=== PATIENT | female | born 1985 | race Caucasian/White ===

== ENCOUNTER 2017-06-16 18:56 | Emergency (ER) | payer OTHER ==
[2017-06-16] MEDS: MORPHINE 2 MG/ML 1ML SYRINGE (J2270) IV (19:30)
[2017-06-16] MEDS: ONDANSETRON 4MG/2ML VIAL (J2405) IV (19:30)
[2017-06-16] MEDS ORDERED: ONDANSETRON 4MG/2ML VIAL (J2405) As Ordered (19:33)
[2017-06-16] MEDS ORDERED: MORPHINE 2 MG/ML 1ML SYRINGE (J2270) As Ordered (19:34)
[2017-06-16 19:37] LABS: BASO # 0.1 10^3/uL (0.0-0.2); BASO % 0.4 % (0.0-1.0); EOS # 0.1 10^3/uL (0.0-0.50); EOS % 1.1 % (0.0-3.0); HEMOGLOBIN 12.8 g/dl (12.0-15.5); IMMATURE GRANULOCYTE % 0.6 % (0-3.0); MEAN CORPUSCULAR HEMOGLOBIN 31.6 pg (27.0-33.0); MEAN CORPUSCULAR HGB CONC 35.6 g/dl (32.0-36.5); MEAN CORPUSCULAR VOLUME 88.9 fl (80.0-96.0); MONO # 0.7 10^3/uL (0.0-0.8); MONO % 5.9 % (0.0-5.0); NEUTROPHILS # 8.3 10^3/uL (1.8-7.7); PLATELET COUNT, AUTOMATED 245 10^3/uL (150-450); RED BLOOD COUNT 4.05 10^6/uL (4.00-5.40); RED CELL DISTRIBUTION WIDTH 12.6 % (11.5-14.5); WHITE BLOOD COUNT 12.3 10^3/uL (4.0-10.0)
[2017-06-16] MEDS ORDERED: MORPHINE 4 MG/ML 1ML VIAL (J2270) As Ordered (19:46)
[2017-06-16] MEDS: MORPHINE 4 MG/ML 1ML VIAL (J2270) IV ×2 (19:48→20:09)
[2017-06-16] MEDS ORDERED: LIDOCAINE W/EPINEPHRINE 1% 20ML VIAL SC (20:30)
[2017-06-16 20:52] LABS: ALBUMIN 3.6 GM/DL (3.2-5.2); ALBUMIN/GLOBULIN RATIO 1.16 (1.00-1.93); ALKALINE PHOSPHATASE 53 U/L (45-117); ALT/SGPT 15 U/L (12-78); ANION GAP 8 MEQ/L (8-16); AST/SGOT 18 U/L (7-37); BILIRUBIN,DIRECT 0.1 MG/DL (0.0-0.2); BILIRUBIN,TOTAL 0.4 MG/DL (0.2-1.0); BLOOD UREA NITROGEN 7 MG/DL (7-18); CALCIUM LEVEL 8.7 MG/DL (8.5-10.1); CARBON DIOXIDE LEVEL 22 MEQ/L (21-32); CHLORIDE LEVEL 110 MEQ/L (98-107); CREATININE FOR GFR 0.78 MG/DL (0.55-1.30); GLOMERULAR FILTRATION RATE > 60.0 (>60); GLUCOSE, FASTING 94 MG/DL (70-100); HCG, SERUM QUANTITATIVE 85966 MIU/ML; LIPASE 112 U/L (73-393); SODIUM LEVEL 140 MEQ/L (136-145); TOTAL PROTEIN 6.7 GM/DL (6.4-8.2)
[2017-06-16] MEDS: OXYCODONE/APAP 5MG/325MG(BULK FOR ED) 1 TABLET PO (22:45)
== END 2017-06-16 22:59 | disposition home or self-care (01) ==
LOC: M ED 18:56
DX: O20.0 Threatened abortion (principal); Z3A.09 9 weeks gestation of pregnancy; O99.331 Smoking (tobacco) complicating pregnancy, first trimester; F17.210 Nicotine dependence, cigarettes, uncomplicated
CPT/HCPCS: J2270

== ENCOUNTER 2018-06-25 | Emergency (ER) | payer OTHER ==
[~2018-06-25] VITALS: Ht 152.4 cm; Wt 64.5 kg
[~2018-06-25] MED LIST: ACET-716 PO; CLIN300C PO; MORP10SO PO; NAPR500T2 PO; No Historical Meds; OXYC1TAB23 PO; PROM25TA12 PO; TYLE325T5 PO; ZOFR4TAB16 PO
[2018-06-25] MEDS ORDERED: ELIM5CRE2 TOP (02:38)
[2018-06-25 02:48] VITALS: BP 114/73
== END 2018-06-25 03:02 | disposition home or self-care (01) ==
LOC: M ED
DX: B86 Scabies (principal); F17.210 Nicotine dependence, cigarettes, uncomplicated

== ENCOUNTER → 2018-10-22 | Outpatient (CLI) | payer OTHER ==
[~2018-10-22] MED LIST changes: +ELIM5CRE2 TOP
--- NOTE | 2018-10-22 14:13 | REP ---
PA and lateral chest: Comparison is 05/27/2014. The lung rosales are clear. The cardiac size is normal. The gretta, mediastinum, and skeletal structures are unremarkable except for thoracic scoliosis convex right at the lower thoracic level, unchanged . Impression: Negative PA and lateral chest. There is no interval change Electronically Signed by Thai Alcala MD 10/22/2018 02:04 P
== END ==
LOC: M SMT 13:50
PROVIDERS: ATTEND Physician Assistant Medical
DX: R05 Cough (principal); R06.02 Shortness of breath

== ENCOUNTER 2018-12-19 20:09 | Emergency (ER) | payer OTHER ==
[~2018-12-19] VITALS: Ht 152.4 cm; Wt 96.4 kg
[2018-12-19 21:40] LABS: INFLUENZA A AMPLIFICATION NEGATIVE (NEGATIVE); INFLUENZA B AMPLIFICATION NEGATIVE (NEGATIVE)
[2018-12-19 22:31] LABS: BASO # 0.1 10^3/uL (0.0-0.2); BASO % 0.4 % (0.0-1.0); EOS # 0.1 10^3/uL (0.0-0.5); EOS % 0.7 % (0.0-3.0); HEMATOCRIT 39.6 % (36.0-47.0); HEMOGLOBIN 13.6 g/dl (12.0-15.5); LYMPH # 2.2 10^3/uL (1.5-5.0); MEAN CORPUSCULAR HEMOGLOBIN 31.9 pg (27.0-33.0); MEAN CORPUSCULAR HGB CONC 34.3 g/dl (32.0-36.5); MONO # 0.7 10^3/uL (0.0-0.8); MONO % 4.7 % (0.0-5.0); NEUTROPHILS # 10.7 10^3/uL (1.5-8.5); PLATELET COUNT, AUTOMATED 231 10^3/uL (150-450); RED BLOOD COUNT 4.26 10^6/uL (4.00-5.40); WHITE BLOOD COUNT 13.7 10^3/uL (4.0-10.0)
[2018-12-19 22:57] LABS: MONO REFLEX EBV COMP NEGATIVE (NEGATIVE)
[2018-12-19] MEDS ORDERED: PENI500T PO (23:13)
[2018-12-19] MEDS ORDERED: PENICILLIN V POTASSIUM 500 MG TAB PO ONE (23:15)
[2018-12-19 23:31] VITALS: BP 141/65
[2018-12-22 00:07] LABS: EBV VIRAL CAPSID AG IgG >600.0 U/mL (0.0-17.9); EBV VIRAL CAPSID AG IgM <36.0 U/mL (0.0-35.9)
== END 2018-12-19 23:32 | disposition home or self-care (01) ==
LOC: M ED 20:09
DX: J06.9 Acute upper respiratory infection, unspecified (principal); D72.829 Elevated white blood cell count, unspecified; F17.210 Nicotine dependence, cigarettes, uncomplicated

== ENCOUNTER 2018-12-20 15:47 | Emergency (ER) | payer OTHER ==
[~2018-12-20 15:47] MED LIST changes: +PENI500T PO
[2018-12-20 15:48] VITALS: BP 125/78
== END 2018-12-20 16:53 | disposition home or self-care (01) ==
LOC: M ED 15:47
DX: J03.90 Acute tonsillitis, unspecified (principal); F17.200 Nicotine dependence, unspecified, uncomplicated

== ENCOUNTER 2019-01-07 13:46 | Emergency (ER) | payer OTHER ==
[~2019-01-07] VITALS: Ht 152.4 cm; Wt 58.9 kg
[2019-01-07] MEDS ORDERED: ACYC800T PO (16:41)
[2019-01-07 16:46] VITALS: BP 149/92
== END 2019-01-07 16:47 | disposition home or self-care (01) ==
LOC: M ED 13:46
DX: B02.9 Zoster without complications (principal); F17.210 Nicotine dependence, cigarettes, uncomplicated

== ENCOUNTER 2019-11-19 16:46 | Emergency (ER) | payer OTHER, SELFPAY ==
[~2019-11-19] VITALS: Ht 165.1 cm; Wt 58.6 kg
[2019-11-19 16:46] VITALS: BP 131/89
[~2019-11-19 16:46] MED LIST changes: +ACYC800T PO
== END 2019-11-19 18:06 | disposition left against medical advice (07) ==
LOC: M ED 16:46
DX: Z53.21 Procedure and treatment not carried out due to patient leaving prior to being seen by health care provider (principal)

== ENCOUNTER 2020-03-29 12:48 | Emergency (ER) | payer OTHER, SELFPAY ==
[~2020-03-29] VITALS: Ht 165.1 cm; Wt 60.7 kg
[2020-03-29] MEDS ORDERED: dexameTHASONE 20MG/5ML VIAL (J1100 PER 1MG) IV ONE (13:15)
[2020-03-29] MEDS: COMBIVENT RESPIMAT 100-20MCG INHALER 4GM INH SCH ×3 (13:21→13:33)
--- NOTE | 2020-03-29 13:55 | REP ---
INDICATION: DYSPNEA/COUGH. COMPARISON: 10/22/2018 a two view exam TECHNIQUE: Portable FINDINGS: The technique utilized in obtaining the radiograph has magnified the cardiac silhouette and accentuated the interstitial markings. The superior mediastinal structures are midline. The cardiac silhouette is unremarkable in size, shape, and position. The diaphragmatic surfaces of the lungs are regular, and the costophrenic angles are clear. The pulmonary rosales are clear. The imaged osseous structures are intact. IMPRESSION: There is no acute cardiopulmonary disease. <Electronically signed by Marquis Izaguirre > 03/29/20 [id number]
[2020-03-29 14:07] LABS: VENOUS BASE EXCESS -1.7 (-2.0-2.0); VENOUS HCO3 20.7 MEQ/L (23.0-27.0); VENOUS PARTIAL PRESSURE CO2 28.9 mmHg (38.0-50.0); VENOUS PH 7.473 UNITS (7.330-7.430); VENOUS TOTAL CO2 21.6 MEQ/L (24.0-28.0)
[2020-03-29 14:13] LABS: BASO % 0.3 % (0.0-1.0); EOS % 0.4 % (0.0-3.0); HEMATOCRIT 39.2 % (36.0-47.0); HEMOGLOBIN 13.1 g/dl (12.0-15.5); LYMPH # 1.7 10^3/uL (1.5-5.0); LYMPH % 24.2 % (24.0-44.0); MEAN CORPUSCULAR HEMOGLOBIN 32.6 pg (27.0-33.0); MEAN CORPUSCULAR HGB CONC 33.4 g/dl (32.0-36.5); MEAN CORPUSCULAR VOLUME 97.5 fl (80.0-96.0); MONO # 0.4 10^3/uL (0.0-0.8); MONO % 6.2 % (0.0-5.0); NEUTROPHILS # 4.9 10^3/uL (1.5-8.5); NEUTROPHILS % 68.2 % (36.0-66.0); PLATELET COUNT, AUTOMATED 196 10^3/uL (150-450); RED BLOOD COUNT 4.02 10^6/uL (4.00-5.40); WHITE BLOOD COUNT 7.2 10^3/uL (4.0-10.0)
[2020-03-29 14:24] LABS: INR 0.91; PROTHROMBIN TIME 12.4 SECONDS (12.5-14.3)
[2020-03-29 14:25] LABS: PARTIAL THROMBOPLASTIN TIME 25.8 SECONDS (24.2-38.5)
[2020-03-29 14:27] LABS: D-DIMER QUANT 367.41 ng/ml (<500)
[2020-03-29] MEDS ORDERED: PRED20TA (14:39)
[2020-03-29] MEDS ORDERED: ALBU8.5H (14:39)
[2020-03-29 14:40] LABS: ERYTHROCYTE SEDIMENTATION RATE 3 mm/hr (0-20)
[2020-03-29 14:42] LABS: ALT/SGPT 32 U/L (12-78); BLOOD UREA NITROGEN 10 MG/DL (7-18); CALCIUM LEVEL 8.5 MG/DL (8.5-10.1); CARBON DIOXIDE LEVEL 23 MEQ/L (21-32); CHLORIDE LEVEL 111 MEQ/L (98-107); CREATININE FOR GFR 0.78 MG/DL (0.55-1.30); GLOMERULAR FILTRATION RATE > 60.0 (>60); GLUCOSE, FASTING 88 MG/DL (70-100); POTASSIUM SERUM 4.1 MEQ/L (3.5-5.1); SODIUM LEVEL 140 MEQ/L (136-145)
[2020-03-29 14:43] LABS: ALBUMIN 3.4 GM/DL (3.2-5.2); BILIRUBIN,DIRECT 0.1 MG/DL (0.0-0.2); BILIRUBIN,TOTAL 0.1 MG/DL (0.2-1.0); CK-MB VALUE MASS < 1.0 NG/ML (<3.6); CPK CREATINE PHOSPHOKINASE 34 U/L (26-192); FERRITIN 47 NG/ML (8-252); LDH LACTATE DEHYDROGENASE 133 U/L (84-246); MB/CK RELATIVE INDEX 2.94 (< OR =4); TOTAL PROTEIN 6.5 GM/DL (6.4-8.2); TROPONIN I < 0.02 NG/ML (< 0.10)
[2020-03-29] MEDS ORDERED: COMBAER6 INH (16:06)
[2020-03-29] MEDS ORDERED: PRED10TA2 PO (16:06)
[2020-03-29] MEDS ORDERED: COMBIVENT RESPIMAT 100-20MCG INHALER 4GM INH ONE (16:15)
[2020-03-29 16:38] VITALS: BP 106/66
--- NOTE | 2020-03-29 20:02 | ECGEPIP ---
[facility] - ED Test Date: 2020-03-29 Pat Name: STEPHY DAWSON Department: Room: - Gender: Female [employer]: KARLO : 1985 Requested By: GEN Chahal Order Number: [id number] Reading MD: Curry Holden Measurements Intervals Edwards Rate: 66 P: 19 ID: [id number] QRS: 39 QRSD: 89 T: 44 QT: 364 QTc: 382 Interpretive Statements SINUS RHYTHM INCOMPLETE RIGHT BUNDLE BRANCH BLOCK SIMILAR TO 05/27/14 Electronically Signed on 03-29-2020 20:02:06 EST by Curry Holden
== END 2020-03-29 16:41 | disposition home or self-care (01) ==
LOC: EDBD 12:48 → M ED 12:48
DX: U07.1 COVID-19 (principal)
CPT/HCPCS: 71045; 80048; 80076; 82550; 82553; 82728; 82803; 83605; 83615; 84443; 85025; 85379; 85610; 85652; 85730; 86140; 87040; 93005; 93041; 94640; 96374; 99285; J1100

== ENCOUNTER → 2020-06-16 | Outpatient (REF) | payer OTHER ==
[~2020-06-16] MED LIST changes: +ACYC1TAB4 PO; -ACYC800T PO; +ALBU8.5H; +COMBAER6 INH; +PRED10TA2 PO; +PRED20TA
[2020-06-16 18:30] LABS: BASO # 0.1 10^3/uL (0.0-0.2); BASO % 1.1 % (0.0-1.0); EOS # 0.2 10^3/uL (0.0-0.5); EOS % 1.7 % (0.0-3.0); HEMATOCRIT 45.1 % (36.0-47.0); HEMOGLOBIN 15.3 g/dl (12.0-15.5); LYMPH # 1.9 10^3/uL (1.5-5.0); LYMPH % 19.9 % (24.0-44.0); MEAN CORPUSCULAR HEMOGLOBIN 33.6 pg (27.0-33.0); MEAN CORPUSCULAR HGB CONC 33.9 g/dl (32.0-36.5); MEAN CORPUSCULAR VOLUME 99.1 fl (80.0-96.0); MONO # 0.8 10^3/uL (0.0-0.8); MONO % 8.5 % (2.0-8.0); NEUTROPHILS # 6.4 10^3/uL (1.5-8.5); NEUTROPHILS % 67.5 % (36.0-66.0); PLATELET COUNT, AUTOMATED 296 10^3/uL (150-450); RED BLOOD COUNT 4.55 10^6/uL (4.00-5.40); WHITE BLOOD COUNT 9.4 10^3/uL (4.0-10.0)
[2020-06-16 19:02] LABS: ALBUMIN 4.2 GM/DL (3.2-5.2); ALT/SGPT 51 U/L (12-78); BILIRUBIN,TOTAL 0.3 MG/DL (0.2-1.0); BLOOD UREA NITROGEN 23 MG/DL (7-18); CALCIUM LEVEL 9.4 MG/DL (8.5-10.1); CARBON DIOXIDE LEVEL 24 MEQ/L (21-32); CHLORIDE LEVEL 104 MEQ/L (98-107); FREE T4 1.13 NG/DL (0.76-1.46); GLOMERULAR FILTRATION RATE > 60.0 (>60); GLUCOSE, FASTING 85 MG/DL (70-100); POTASSIUM SERUM 5.9 MEQ/L (3.5-5.1); SODIUM LEVEL 136 MEQ/L (136-145); THYROID STIMULATING HORMONE 0.704 uIU/ML (0.358-3.740); TOTAL PROTEIN 7.8 GM/DL (6.4-8.2)
[2020-06-16 19:05] LABS: APPEARANCE, URINE HAZY (CLEAR); BACTERIA, URINE AUTO NEGATIVE (NEGATIVE); BILIRUBIN, URINE AUTO NEGATIVE (NEGATIVE); BLOOD, URINE BLOOD NEGATIVE (NEGATIVE); COLOR, URINE YELLOW (YELLOW); GLUCOSE, URINE (UA) AUTO NEGATIVE (NEGATIVE); KETONE, URINE AUTO NEGATIVE (NEGATIVE); LEUKOCYTE ESTERASE, URINE AUTO TRACE (NEGATIVE); NITRITE, URINE AUTO NEGATIVE (NEGATIVE); PROTEIN, URINE AUTO NEGATIVE (NEGATIVE); RBC, URINE AUTO 1 /HPF (0-3); SPECIFIC GRAVITY URINE AUTO 1.016 (1.002-1.035); SQUAMOUS EPITHELIAL CELL UR AU 3 /HPF (0-6); UROBILINOGEN, URINE AUTO 0.2 mg/dL (0.0-2.0); WBC, URINE AUTO 1 /HPF (0-3)
== END ==
LOC: M SFHCADAM 15:06
PROVIDERS: ATTEND Physician Assistant
DX: K29.00 Acute gastritis without bleeding (principal); R35.0 Frequency of micturition; F51.01 Primary insomnia

== ENCOUNTER 2020-11-10 13:58 | Emergency (ER) | payer MEDICAID, OTHER ==
[~2020-11-10] VITALS: Ht 152.4 cm; Wt 61.7 kg
[2020-11-10] MEDS ORDERED: OMEP-218 (14:10)
[2020-11-10] MEDS ORDERED: PANTOPRAZOLE 40MG VIAL (C9113 PER 1) IV ONE (15:20)
[2020-11-10] MEDS ORDERED: NS 1,000 ML IV SCH (15:20)
[2020-11-10 16:16] LABS: BASO # 0.1 10^3/uL (0.0-0.2); EOS # 0.2 10^3/uL (0.0-0.5); EOS % 2.4 % (0.0-3.0); HEMATOCRIT 43.3 % (36.0-47.0); HEMOGLOBIN 14.9 g/dl (12.0-15.5); LYMPH # 2.1 10^3/uL (1.5-5.0); LYMPH % 29.5 % (24.0-44.0); MEAN CORPUSCULAR HEMOGLOBIN 33.6 pg (27.0-33.0); MEAN CORPUSCULAR HGB CONC 34.4 g/dl (32.0-36.5); MEAN CORPUSCULAR VOLUME 97.7 fl (80.0-96.0); MONO # 0.5 10^3/uL (0.0-0.8); MONO % 7.6 % (2.0-8.0); NEUTROPHILS # 4.1 10^3/uL (1.5-8.5); NEUTROPHILS % 59.2 % (36.0-66.0); PLATELET COUNT, AUTOMATED 243 10^3/uL (150-450); RED BLOOD COUNT 4.43 10^6/uL (4.00-5.40); WHITE BLOOD COUNT 6.9 10^3/uL (4.0-10.0)
[2020-11-10 16:27] LABS: INR 0.95
[2020-11-10 16:41] LABS: HCG, SERUM QUALITATIVE NEGATIVE (NEGATIVE)
[2020-11-10 16:47] LABS: ALBUMIN 3.8 GM/DL (3.2-5.2); ALT/SGPT 20 U/L (12-78); BILIRUBIN,DIRECT 0.1 MG/DL (0.0-0.2); BILIRUBIN,TOTAL 0.3 MG/DL (0.2-1.0); BLOOD UREA NITROGEN 10 MG/DL (7-18); CALCIUM LEVEL 8.9 MG/DL (8.5-10.1); CARBON DIOXIDE LEVEL 26 MEQ/L (21-32); CHLORIDE LEVEL 108 MEQ/L (98-107); GLOMERULAR FILTRATION RATE > 60.0 (>60); GLUCOSE, FASTING 86 MG/DL (70-100); LIPASE 211 U/L (73-393); POTASSIUM SERUM 4.3 MEQ/L (3.5-5.1); SODIUM LEVEL 139 MEQ/L (136-145); TOTAL PROTEIN 7.3 GM/DL (6.4-8.2)
--- NOTE | 2020-11-10 18:02 | REPVR ---
PROCEDURE INFORMATION: Exam: CT Abdomen And Pelvis Without Contrast Exam date and time: 11/10/2020 5:02 PM Age: 34 years old Clinical indication: Abdominal pain; Generalized; Additional info: Gi bleed TECHNIQUE: Imaging protocol: Computed tomography of the abdomen and pelvis without contrast. Radiation optimization: All CT scans at this facility use at least one of these dose optimization techniques: automated exposure control; mA and/or kV adjustment per patient size (includes targeted exams where dose is matched to clinical indication); or iterative reconstruction. COMPARISON: CR Abdomen,Flat Upright,PA CHEST 07/24/2015 6:10 PM FINDINGS: Limitations: Absence of intravenous contrast limits evaluation of vascular and visceral structures. Liver: There are no focal liver lesions. Gallbladder and bile ducts: The gallbladder is unremarkable. Pancreas: The pancreas is normal. Spleen: The spleen is unremarkable. Adrenal glands: The adrenal glands are unremarkable. Kidneys and ureters: The kidneys are unremarkable. Stomach and bowel: There is no evidence of intestinal obstruction. Appendix: The appendix is unremarkable. Intraperitoneal space: Unremarkable. No free air. No significant fluid collection. Vasculature: The aorta is unremarkable. Lymph nodes: Unremarkable. No enlarged lymph nodes. Urinary bladder: The bladder is unremarkable. Reproductive: An intrauterine device is present. Bones/joints: There is probable of vertebral anomaly at the T11 level. Patient probably has a transitional vertebral segment. Soft tissues: Unremarkable. IMPRESSION: No acute findings on this noncontrast study. Electronically signed by: Alka Hussein On 11/10/2020 18:00:51 PM
[2020-11-10 19:02] VITALS: BP 130/86
== END 2020-11-10 19:03 | disposition home or self-care (01) ==
LOC: M ED 13:58
DX: K52.9 Noninfective gastroenteritis and colitis, unspecified (principal); K21.9 Gastro-esophageal reflux disease without esophagitis; Z79.899 Other long term (current) drug therapy; Z97.5 Presence of (intrauterine) contraceptive device
CPT/HCPCS: 74176; 80048; 80076; 81001; 83690; 84703; 85025; 85610; 96361; 96374; 99284; C9113

== ENCOUNTER 2020-11-21 12:15 | Emergency (ER) | payer MEDICAID, OTHER ==
[~2020-11-21] VITALS: Ht 152.4 cm; Wt 61.8 kg
[~2020-11-21 12:15] MED LIST changes: +OMEP-218
[2020-11-21] MEDS ORDERED: SUCR1TAB56 (12:22)
[2020-11-21] MEDS: NS 1,000 ML IV ONE (13:32)
[2020-11-21] MEDS: KETOROLAC 30 MG/ML 1ML VIAL IV ONE (13:32)
[2020-11-21] MEDS: AMPICILLIN SOD/SULBACTAM SOD 3 GM in D5W MINI-BAG PLUS 100 ML IV ONE (13:36)
[2020-11-21 13:42] LABS: BASO # 0.1 10^3/uL (0.0-0.2); BASO % 0.5 % (0.0-1.0); EOS # 0.2 10^3/uL (0.0-0.5); EOS % 1.5 % (0.0-3.0); HEMATOCRIT 39.2 % (36.0-47.0); HEMOGLOBIN 13.4 g/dl (12.0-15.5); LYMPH # 2.3 10^3/uL (1.5-5.0); LYMPH % 19.9 % (24.0-44.0); MEAN CORPUSCULAR HEMOGLOBIN 33.3 pg (27.0-33.0); MEAN CORPUSCULAR HGB CONC 34.2 g/dl (32.0-36.5); MEAN CORPUSCULAR VOLUME 97.3 fl (80.0-96.0); MONO # 0.7 10^3/uL (0.0-0.8); MONO % 6.2 % (2.0-8.0); NEUTROPHILS # 8.2 10^3/uL (1.5-8.5); NEUTROPHILS % 71.5 % (36.0-66.0); PLATELET COUNT, AUTOMATED 236 10^3/uL (150-450); RED BLOOD COUNT 4.03 10^6/uL (4.00-5.40); WHITE BLOOD COUNT 11.4 10^3/uL (4.0-10.0)
[2020-11-21 14:12] LABS: BLOOD UREA NITROGEN 12 MG/DL (7-18); CALCIUM LEVEL 8.3 MG/DL (8.5-10.1); CARBON DIOXIDE LEVEL 23 MEQ/L (21-32); CHLORIDE LEVEL 108 MEQ/L (98-107); CREATININE FOR GFR 0.81 MG/DL (0.55-1.30); GLOMERULAR FILTRATION RATE > 60.0 (>60); GLUCOSE, FASTING 79 MG/DL (70-100); SODIUM LEVEL 138 MEQ/L (136-145)
[2020-11-21] MEDS ORDERED: AUGM875T28 PO (14:40)
[2020-11-21 14:46] VITALS: BP 123/66
== END 2020-11-21 14:51 | disposition home or self-care (01) ==
LOC: M ED 12:15
DX: K04.7 Periapical abscess without sinus (principal); F17.200 Nicotine dependence, unspecified, uncomplicated; Z79.899 Other long term (current) drug therapy
CPT/HCPCS: 80048; 84702; 85025; 96365; 96375; 99283; J1885

== ENCOUNTER 2020-11-22 01:09 | Emergency (ER) | payer MEDICAID, OTHER ==
[~2020-11-22] VITALS: Ht 152.4 cm; Wt 63.8 kg
[~2020-11-22 01:09] MED LIST changes: +AUGM875T28 PO; +SUCR1TAB56
[2020-11-22] MEDS ORDERED: NS 1,000 ML IV ONE (06:30)
[2020-11-22] MEDS ORDERED: KETOROLAC 30 MG/ML 1ML VIAL IV ONE (06:30)
[2020-11-22] MEDS ORDERED: ISOVUE-370 76% 100ML VIAL As Ordered ONE (06:59)
[2020-11-22 07:08] LABS: BASO # 0.1 10^3/uL (0.0-0.2); BASO % 0.6 % (0.0-1.0); EOS # 0.2 10^3/uL (0.0-0.5); EOS % 2.1 % (0.0-3.0); HEMATOCRIT 36.4 % (36.0-47.0); HEMOGLOBIN 12.6 g/dl (12.0-15.5); LYMPH # 2.3 10^3/uL (1.5-5.0); LYMPH % 21.2 % (24.0-44.0); MEAN CORPUSCULAR HEMOGLOBIN 33.8 pg (27.0-33.0); MEAN CORPUSCULAR HGB CONC 34.6 g/dl (32.0-36.5); MEAN CORPUSCULAR VOLUME 97.6 fl (80.0-96.0); MONO # 0.8 10^3/uL (0.0-0.8); MONO % 7.3 % (2.0-8.0); NEUTROPHILS # 7.3 10^3/uL (1.5-8.5); NEUTROPHILS % 68.4 % (36.0-66.0); PLATELET COUNT, AUTOMATED 217 10^3/uL (150-450); RED BLOOD COUNT 3.73 10^6/uL (4.00-5.40); WHITE BLOOD COUNT 10.7 10^3/uL (4.0-10.0)
[2020-11-22 07:31] LABS: ALBUMIN 3.2 GM/DL (3.2-5.2); ALT/SGPT 14 U/L (12-78); BILIRUBIN,DIRECT 0.1 MG/DL (0.0-0.2); BILIRUBIN,TOTAL 0.3 MG/DL (0.2-1.0); BLOOD UREA NITROGEN 17 MG/DL (7-18); C REACTIVE PROTEIN QUANTITATIV 0.79 MG/DL (0.00-0.30); CALCIUM LEVEL 8.4 MG/DL (8.5-10.1); CARBON DIOXIDE LEVEL 22 MEQ/L (21-32); CHLORIDE LEVEL 111 MEQ/L (98-107); CREATININE FOR GFR 0.74 MG/DL (0.55-1.30); GLOMERULAR FILTRATION RATE > 60.0 (>60); GLUCOSE, FASTING 99 MG/DL (70-100); LIPASE 177 U/L (73-393); POTASSIUM SERUM 4.2 MEQ/L (3.5-5.1); SODIUM LEVEL 140 MEQ/L (136-145); TOTAL PROTEIN 6.1 GM/DL (6.4-8.2)
[2020-11-22 07:53] LABS: ERYTHROCYTE SEDIMENTATION RATE 4 mm/hr (0-20)
[2020-11-22] MEDS ORDERED: AMPICILLIN SOD/SULBACTAM SOD 3 GM in D5W MINI-BAG PLUS 100 ML IV ONE (08:55)
--- NOTE | 2020-11-22 09:24 | REPVR ---
PROCEDURE INFORMATION: Exam: CT Maxillofacial With Contrast Exam date and time: 11/22/2020 7:57 AM Age: 35 years old Clinical indication: Other: Swelling; Additional info: Tooth abscess/ facial swelling beside abx TECHNIQUE: Imaging protocol: Computed tomography images of the face with intravenous contrast. Radiation optimization: All CT scans at this facility use at least one of these dose optimization techniques: automated exposure control; mA and/or kV adjustment per patient size (includes targeted exams where dose is matched to clinical indication); or iterative reconstruction. Contrast material: ISOVUE 370; Contrast volume: 75 ml; Contrast route: INTRAVENOUS (IV); COMPARISON: No relevant prior studies available. FINDINGS: Orbital cavity: Orbits are normal. Globes are unremarkable. Bones/joints: See "Soft tissues" finding. Paranasal sinuses: There is fluid in left maxillary sinus. There is mucosal thickening in right maxillary and sphenoid sinuses. The mucosa of the middle in inferior right turbinate is engorged which may relate to nasal cycle. Nasal septum is deviated to right. 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 Soft tissues: There is left facial soft tissue swelling consistent with cellulitis. This located along the mandible and maxilla. There is no well-defined drainable abscess. Lymph nodes: There cervical lymph nodes which are likely reactive. Dental: There are numerous dental caries. There are periodontal lucencies adjacent to right maxillary anterior molar and posterior bicuspid teeth; left lateral maxillary incisor, canine, anterior bicuspid, and 1st and 2nd molar teeth. IMPRESSION: Left facial cellulitis without evidence of significant drainable abscess. This may be odontogenic in origin given dental caries and periodontal lucencies. Electronically signed by: Abigail Quintero On 11/22/2020 09:23:46 AM
[2020-11-22] MEDS ORDERED: dexameTHASONE 20MG/5ML VIAL (J1100 PER 1MG) IV ONE (10:20)
[2020-11-22 11:25] VITALS: BP 135/80
== END 2020-11-22 11:15 | disposition home or self-care (01) ==
LOC: M ED 01:09
DX: K04.7 Periapical abscess without sinus (principal); K02.9 Dental caries, unspecified; L03.211 Cellulitis of face; F41.9 Anxiety disorder, unspecified; F17.200 Nicotine dependence, unspecified, uncomplicated
CPT/HCPCS: 70487; 80048; 80076; 83690; 85025; 85652; 86140; 96361; 96365; 99284; J1100; J1885; Q9967

== ENCOUNTER → 2021-02-15 | Outpatient (CLI) | payer OTHER ==
[~2021-02-15] MED LIST changes: +CVS1CAP2 PO; +META0.52 PO; +OMEP-173; -OMEP-218
== END ==
LOC: M LABSMTC 13:39
PROVIDERS: ATTEND Anesthesiology
DX: Z01.812 Encounter for preprocedural laboratory examination (principal)

== ENCOUNTER 2021-02-19 10:42 | Day surgery (SDC) | payer OTHER ==
[~2021-02-19] VITALS: Ht 152.4 cm; Wt 60.5 kg
[~2021-02-19 10:42] MED LIST changes: +AMPICILLIN SOD/SULBACTAM SOD 3 GM in D5W MINI-BAG PLUS 100 ML IV ONE; +LIDOCAINE 1% MDV 20ML VIAL SQ PRN; +LR 1,000 ML IV ONE; -OMEP-173; +OMEP-218; +dexameTHASONE 4 MG/ML 1ML VIAL (J1100 PER 1MG) IV ONE
[2021-02-19] MEDS ORDERED: LIDOCAINE 2% W/ EPINEPHRINE 1.7 ML DENTAL INJ As Ordered ONE (11:16)
[2021-02-19] MEDS ORDERED: MIDAZOLAM INJ 2MG/2ML VIAL (J2250 PER 1MG) As Ordered ONE (12:28)
[2021-02-19] MEDS ORDERED: ONDANSETRON 4MG/2ML VIAL As Ordered ONE (12:28)
[2021-02-19] MEDS ORDERED: LIDOCAINE 2% 100MG/5ML SDV (FOR ANES.) As Ordered ONE (12:28)
[2021-02-19] MEDS ORDERED: ACETAMINOPHEN 1000MG 100ML IV BTL (OFIRMEV) (J0131 PER 10MG) As Ordered ONE (12:28)
[2021-02-19] MEDS ORDERED: fentaNYL 100 MCG/2 ML INJECTION (J3010) As Ordered ONE ×2 (12:28→12:33)
[2021-02-19] MEDS ORDERED: ROCURONIUM BROMIDE 50 MG/5 ML VIAL As Ordered ONE (12:28)
[2021-02-19] MEDS ORDERED: dexameTHASONE 4 MG/ML 1ML VIAL (J1100 PER 1MG) As Ordered ONE (12:28)
[2021-02-19] MEDS ORDERED: SUGAMMADEX SODIUM 500 MG/5 ML VIAL (BRIDION) As Ordered ONE (12:28)
[2021-02-19] MEDS ORDERED: METOCLOPRAMIDE INJ 10MG/2ML VIAL (J2765 PER 1) As Ordered ONE (12:28)
[2021-02-19] MEDS ORDERED: LIDOCAINE 5% OINT 30GM TUBE As Ordered ONE (12:28)
[2021-02-19] MEDS ORDERED: propofoL 200 MG/20 ML VIAL As Ordered ONE (12:28)
[2021-02-19] MEDS ORDERED: HYDROmorphone HCL 2 MG/ML 1ML VIAL As Ordered ONE (12:41)
[2021-02-19] MEDS ORDERED: DESFLURANE 240 ML INHALANT As Ordered ONE (13:16)
[2021-02-19] MEDS ORDERED: fentaNYL 100 MCG/2 ML INJECTION (J3010) IV PRN (13:50)
[2021-02-19] MEDS ORDERED: HYDROMORPHONE HCL 0.5 MG/ 0.5 ML SYRINGE (J1170 PER 1) IV PRN (13:50)
[2021-02-19] MEDS ORDERED: oxyCODONE 5MG TAB PO PRN (13:50)
[2021-02-19] MEDS ORDERED: LR 1,000 ML IV SCH (13:50)
[2021-02-19] MEDS ORDERED: ONDANSETRON 4MG/2ML VIAL IV PRN (13:50)
--- NOTE | 2021-02-19 14:44 | RO ---
OPERATIVE NOTE DATE OF OPERATION: 02/19/2021 PREOPERATIVE DIAGNOSIS: Hopeless dentition including hopeless teeth #3, 4, 5, 6, 7, 8, 9, 10, 11, 12, 13, 14, 15, 19, 20, 21, 22, 23, 24, 25, 26, 27, 28, 29. POSTOPERATIVE DIAGNOSIS: Status post hopeless dentition including hopeless teeth #3, 4, 5, 6, 7, 8, 9, 10, 11, 12, 13, 14, 15, 19, 20, 21, 22, 23, 24, 25, 26, 27, 28, 29. PROCEDURE PERFORMED: Extraction of all the aforementioned teeth. SURGEON: Ed Coe DMD, MD CERTIFIED PROSTHETIST VICE PRESIDENT: ANESTHESIA: General endotracheal anesthesia via nasal JUAN CARLOS. SPECIMEN: Teeth for gross only. INDICATIONS FOR SURGERY: Nat is a pleasant 35-year-old female referred to my office by her dentis for evaluation for extraction of all her teeth. She does report significant dental anxiety and tells me that she wants to be unconscious for the procedure. I did discuss IV conscious sedation in the office and she declined and wants to have it done under general anesthesia in an operating room setting. All the risks, benefits and alternatives were explained. History and physical was obtained and is in the patient's chart. DESCRIPTION OF PROCEDURE: The patient was taken back to the operating room. She was laid supine on the operating room table. Ulnar nerve protectors were placed. Noninvasive cardiac monitors were applied. At that point, the patient underwent general anesthesia and was intubated with a nasal JUAN CARLOS. She was prepped and draped in the usual sterile fashion. A time out procedure was performed to identify the patient, the procedure and any other precautions. Preoperative antibiotics and steroids were administered. Moist throat pack was inserted in the patient's oropharynx followed by administration of 2% Lidocaine with 1:100,000 Epinephrine as local infiltrations and blocks. A full thickness flap was released at sites #3, 4, 5, 6, 10, 11, 12, 13, 14, 15. Small buccal trough was made in those areas teeth #3, 4, 5, 6,7, 8 , 9, 10, 11, 12, 13, 14 were then luxated and delivered. Alveoplasty was performed to remove any sharp bony edges and undercuts. Flaps were then closed with 3-0 chromic sutures. Routine forceps extraction of teeth #19, 20, 21, 23, 24, 25, 26 was performed. Full thickness flap was released sites #21, 22, 27, 28, 29, small buccal trough was made in those areas and teeth were luxated and delivered. Alveoplasties were then performed in those areas and flaps were closed with 3-0 chromic. Hemostasis was easily achieved and observed. At this point the oral cavity was irrigated and suctioned. The throat pack was removed. The patient was awakened from general anesthesia and taken back to the PACU. COMPLICATIONS: None to mention at the time of surgery. ESTIMATED BLOOD LOSS: 20 mL. DRAINS: No drains placed.
[2021-02-19 15:05] VITALS: BP 132/70
== END 2021-02-19 15:30 | disposition home or self-care (01) ==
LOC: M SDC 10:42
PROVIDERS: ATTEND Dentist
DX: K02.9 Dental caries, unspecified (principal); F17.218 Nicotine dependence, cigarettes, with other nicotine-induced disorders
CPT/HCPCS: 88300; D7210; D7310; D9223; J0131; J1100; J1170; J2250; J2405; J2765; J3010

== ENCOUNTER → 2021-09-21 | Outpatient (REF) | payer OTHER ==
[~2021-09-21] MED LIST changes: -AMPICILLIN SOD/SULBACTAM SOD 3 GM in D5W MINI-BAG PLUS 100 ML IV ONE; -LIDOCAINE 1% MDV 20ML VIAL SQ PRN; -LR 1,000 ML IV ONE; +OMEP-173; -OMEP-218; -dexameTHASONE 4 MG/ML 1ML VIAL (J1100 PER 1MG) IV ONE
== END ==
LOC: M LAB REF 15:43
PROVIDERS: ATTEND Student in an Organized Health Care Education/Training Program
DX: R30.0 Dysuria (principal)

== ENCOUNTER 2022-07-27 00:19 | Emergency (ER) | payer OTHER ==
[~2022-07-27] VITALS: Ht 152.4 cm; Wt 67.9 kg
[2022-07-27 00:20] VITALS: BP 144/92
== END 2022-07-27 03:54 | disposition left against medical advice (07) ==
LOC: M ED 00:19
DX: M79.602 Pain in left arm (principal); Z53.21 Procedure and treatment not carried out due to patient leaving prior to being seen by health care provider

== ENCOUNTER → 2022-07-27 | Outpatient (CLI) | payer OTHER | LOC: M WUC 12:15 | PROVIDERS: ATTEND Nurse Practitioner Family | DX: M54.2 Cervicalgia (principal); M79.10 Myalgia, unspecified site ==

== ENCOUNTER → 2022-07-28 | Outpatient (REF) | payer OTHER ==
[~2022-07-28] MED LIST changes: +KETO10TAB PO; +METH-1164 PO; +NEUR100C PO; +PARA1IUD IU; +TIZA2TA
== END ==
LOC: M SFHCADAM 15:55
PROVIDERS: ATTEND Physician Assistant
DX: R35.0 Frequency of micturition (principal)

== ENCOUNTER 2022-08-03 15:12 | Emergency (ER) | payer OTHER ==
[~2022-08-03] VITALS: Ht 152.4 cm; Wt 67.9 kg
[~2022-08-03 15:12] MED LIST changes: -KETO10TAB PO; -METH-1164 PO; -NEUR100C PO; -PARA1IUD IU; -TIZA2TA
[2022-08-03] MEDS ORDERED: TIZA2TA (15:19)
[2022-08-03] MEDS ORDERED: PARA1IUD IU (15:21)
[2022-08-03 16:04] LABS: BASO # 0.1 10^3/uL (0.0-0.2); EOS # 0.1 10^3/uL (0.0-0.5); HEMATOCRIT 41.2 % (36.0-47.0); HEMOGLOBIN 14.6 g/dl (12.0-15.5); LYMPH % 28.8 % (24.0-44.0); MEAN CORPUSCULAR HEMOGLOBIN 34.2 pg (27.0-33.0); MEAN CORPUSCULAR HGB CONC 35.4 g/dl (32.0-36.5); MEAN CORPUSCULAR VOLUME 96.5 fl (80.0-96.0); MONO # 0.7 10^3/uL (0.0-0.8); MONO % 6.5 % (2.0-8.0); NEUTROPHILS # 6.3 10^3/uL (1.5-8.5); NEUTROPHILS % 61.5 % (36.0-66.0); PLATELET COUNT, AUTOMATED 312 10^3/uL (150-450); RED BLOOD COUNT 4.27 10^6/uL (4.00-5.40); WHITE BLOOD COUNT 10.2 10^3/uL (4.0-10.0)
[2022-08-03] MEDS ORDERED: LORazepam 2 MG/ML 1ML VIAL IV STA (16:08)
[2022-08-03 16:31] LABS: CK-MB VALUE MASS < 1.0 NG/ML (<3.6)
[2022-08-03 16:33] LABS: ALBUMIN 4.4 G/DL (3.2-5.2); ALKALINE PHOSPHATASE 65 U/L (46-116); ALT/SGPT 16 U/L (7.0-40); AST/SGOT 19 U/L (<34); BILIRUBIN,DIRECT 0.1 MG/DL (<0.4); BILIRUBIN,TOTAL 0.3 MG/DL (0.3-1.2); BLOOD UREA NITROGEN 14 MG/DL (9-23); CALCIUM LEVEL 9.3 MG/DL (8.5-10.1); CARBON DIOXIDE LEVEL 18 MMOL/L (20-31); CHLORIDE LEVEL 97 MMOL/L (98-107); CREATININE FOR GFR 0.77 MG/DL (0.55-1.30); GLOMERULAR FILTRATION RATE > 60.0 (>60); GLUCOSE, FASTING 94 MG/DL (60-100); POTASSIUM SERUM 3.3 MMOL/L (3.5-5.1); SODIUM LEVEL 133 MMOL/L (136-145); TOTAL PROTEIN 7.4 G/DL (5.7-8.2)
[2022-08-03 16:35] LABS: THYROID STIMULATING HORMONE 1.104 uIU/ML (0.55-4.78)
[2022-08-03 16:36] LABS: CPK CREATINE PHOSPHOKINASE 128 U/L (34-145); MB/CK RELATIVE INDEX 0.78 (< OR =4)
[2022-08-03] MEDS ORDERED: METHOCARBAMOL 1,000 MG/10 ML VIAL IV ONE (18:45)
[2022-08-03] MEDS ORDERED: NEUR100C PO (19:18)
[2022-08-03] MEDS ORDERED: KETO10TAB PO (19:18)
[2022-08-03] MEDS ORDERED: METH-1164 PO (19:18)
[2022-08-03] MEDS ORDERED: POTASSIUM CHLORIDE 10MEQ SR TABLET PO ONE (20:10)
[2022-08-03 20:23] LABS: MAGNESIUM LEVEL 1.2 MG/DL (1.8-2.4)
[2022-08-03] MEDS ORDERED: MAG SULF 1GM/100ML (MAG RUN) 1 GM in IV 1 EA IV ONE ×4 (20:55)
[2022-08-03] MEDS ORDERED: diazePAM 5MG TABLET PO ONE (22:50)
[2022-08-03 23:30] VITALS: BP 123/68
== END 2022-08-04 00:15 | disposition home or self-care (01) ==
LOC: M ED 15:12
DX: E87.6 Hypokalemia (principal); E83.42 Hypomagnesemia; E03.9 Hypothyroidism, unspecified; M54.10 Radiculopathy, site unspecified; K21.9 Gastro-esophageal reflux disease without esophagitis; F17.200 Nicotine dependence, unspecified, uncomplicated; Z79.899 Other long term (current) drug therapy
CPT/HCPCS: 70450; 70551; 71045; 72141; 80047; 80048; 80076; 82550; 82553; 83735; 84443; 84702; 85025; 93005; 93041; 94760; 96365; 96375; 99285; J1100; J2060; J2800; J3475

== ENCOUNTER → 2022-08-15 | Outpatient (CLI) | payer OTHER ==
[~2022-08-15] MED LIST changes: +KETO10TAB PO; +METH-1164 PO; +NEUR100C PO; +PARA1IUD IU; +TIZA2TA
[2022-08-15 17:58] LABS: ALBUMIN 3.9 G/DL (3.2-5.2); BLOOD UREA NITROGEN 10 MG/DL (9-23); CALCIUM LEVEL 8.4 MG/DL (8.5-10.1); CARBON DIOXIDE LEVEL 22 MMOL/L (20-31); CHLORIDE LEVEL 106 MMOL/L (98-107); CREATININE FOR GFR 0.78 MG/DL (0.55-1.30); GLOMERULAR FILTRATION RATE > 60.0 (>60); GLUCOSE, FASTING 81 MG/DL (60-100); MAGNESIUM LEVEL 1.8 MG/DL (1.8-2.4); PHOSPHORUS LEVEL 3.4 MG/DL (2.5-4.9); POTASSIUM SERUM 4.2 MMOL/L (3.5-5.1); SODIUM LEVEL 137 MMOL/L (136-145)
[2022-08-15 18:20] LABS: C REACTIVE PROTEIN QUANTITATIV < 0.40 MG/DL (<1.0)
== END ==
LOC: M LAB 15:57
PROVIDERS: ATTEND Orthopaedic Surgery
DX: M50.222 Other cervical disc displacement at C5-C6 level (principal)

== ENCOUNTER → 2022-08-17 | Outpatient (REF) | payer OTHER | LOC: M SFHCADAM 16:55 | PROVIDERS: ATTEND Physician Assistant | DX: Z53.9 Procedure and treatment not carried out, unspecified reason (principal); R03.0 Elevated blood-pressure reading, without diagnosis of hypertension; F17.200 Nicotine dependence, unspecified, uncomplicated; M25.512 Pain in left shoulder ==

== ENCOUNTER 2023-07-19 15:53 | Emergency (ER) | payer OTHER ==
[~2023-07-19] VITALS: Ht 162.6 cm; Wt 69.5 kg
[2023-07-19 17:06] VITALS: BP 130/92; TEMP 97.2; O2SAT 99
== END 2023-07-19 18:52 | disposition left against medical advice (07) ==
LOC: M ED 15:53
DX: Z53.21 Procedure and treatment not carried out due to patient leaving prior to being seen by health care provider (principal)

== ENCOUNTER 2025-01-18 03:44 | Emergency (ER) | payer OTHER ==
[~2025-01-18] VITALS: Ht 152.4 cm; Wt 72.7 kg
[~2025-01-18 03:44] MED LIST changes: -ELIM5CRE2 TOP; +PERM60CR8 TOP
[2025-01-18 05:14] VITALS: TEMP 98.8
[2025-01-18 06:15] VITALS: BP 122/69
[2025-01-18 06:54] LABS: ETHYL ALCOHOL (ETHANOL) 0.283 % (0.000-0.010)
[2025-01-18 06:56] LABS: ALT/SGPT 49 U/L (7.0-40); AST/SGOT 63 U/L (<34); CALCIUM LEVEL 8.4 MG/DL (8.5-10.1); CARBON DIOXIDE LEVEL 23 MMOL/L (20-31); CHLORIDE LEVEL 105 MMOL/L (98-107); CPK CREATINE PHOSPHOKINASE 165 U/L (34-145); CREATININE FOR GFR 0.60 MG/DL (0.55-1.30); GLOMERULAR FILTRATION RATE > 90.0 (>60); POTASSIUM SERUM 3.7 MMOL/L (3.5-5.1); SALICYLATE LEVEL < 3.0 MG/DL (<30); SODIUM LEVEL 140 MMOL/L (136-145)
[2025-01-18 06:58] LABS: BASO # 0.1 10^3/uL (0.0-0.2); BASO % 0.7 % (0.0-1.0); EOS # 0.3 10^3/uL (0.0-0.5); EOS % 3.1 % (0.0-3.0); LYMPH # 3.0 10^3/uL (1.5-5.0); LYMPH % 29.3 % (24.0-44.0); MONO # 0.6 10^3/uL (0.0-0.8); MONO % 5.8 % (2.0-8.0); NEUTROPHILS # 6.1 10^3/uL (1.5-8.5); NEUTROPHILS % 59.3 % (36.0-66.0); PLATELET COUNT, AUTOMATED 369 10^3/uL (150-450)
[2025-01-18 07:29] VITALS: O2SAT 98
[2025-01-18 08:21] LABS: AMPHETAMINES LEVEL URINE NEGATIVE (NEGATIVE); BARBITURATES URINE NEGATIVE (NEGATIVE); BENZODIAZEPINES URINE NEGATIVE (NEGATIVE); CANNABINOIDS URINE NEGATIVE (NEGATIVE); METHADONE URINE NEGATIVE (NEGATIVE); OPIATES URINE NEGATIVE (NEGATIVE); PHENCYCLIDINE URINE NEGATIVE (NEGATIVE)
[2025-01-18 08:26] LABS: COCAINE METABOLITE URINE POSITIVE (NEGATIVE)
== END 2025-01-18 08:10 | disposition left against medical advice (07) ==
LOC: M ED 03:44
DX: F10.120 Alcohol abuse with intoxication, uncomplicated (principal); R20.2 Paresthesia of skin; R74.01 Elevation of levels of liver transaminase levels; K21.9 Gastro-esophageal reflux disease without esophagitis; F17.210 Nicotine dependence, cigarettes, uncomplicated; F19.10 Other psychoactive substance abuse, uncomplicated; Z91.018 Allergy to other foods; Z91.09 Other allergy status, other than to drugs and biological substances; Z53.9 Procedure and treatment not carried out, unspecified reason